=== PATIENT | female | born 1985 | race Caucasian/White ===

== ENCOUNTER 2016-11-02 00:51 | Inpatient (IN) | payer OTHER ==
[~2016-11-02] VITALS: Ht 152.4 cm; Wt 68.0 kg
[~2016-11-02 00:51] MED LIST: NAPROSYN375 MG PO
[2016-11-02 02:01] LABS: ABSOLUTE BASOPHIL COUNT 0.1 /CUMM (0.0-0.2); ABSOLUTE EOSINOPHIL COUNT 0.1 /CUMM (0.0-0.7); ABSOLUTE GRANULOCYTE CT 9.2 /CUMM (1.4-6.5); ABSOLUTE LYMPH COUNT 2.6 /CUMM (1.2-3.4); ABSOLUTE MONOCYTE COUNT 0.7 /CUMM (0.10-0.60); BASOPHIL % 0.4 % (0.0-2.0); EOSINOPHIL % 0.6 % (0-5); HEMATOCRIT 35.6 % (37-47); MEAN CORPUSCULAR HGB 30.6 PG (27.0-31.0); MEAN CORPUSCULAR HGB CONC 33.9 G/DL (33.0-37.0); MEAN CORPUSCULAR VOLUME 90.2 FL (81.0-99.0); MEAN PLATELET VOLUME 9.1 FL (7.4-10.4); PLATELET COUNT 157 /CUMM (130-400); RBC DISTRIBUTION WIDTH 12.4 % (11.5-14.5); RED BLOOD CELL CT 3.95 /CUMM (4.20-5.40); WHITE BLOOD CELL COUNT 12.7 /CUMM (4.8-10.8)
[2016-11-02 04:32] VITALS: BP 128/78
--- NOTE | 2016-11-02 09:32 | Labor & Delivery Summary ---
Delivery Summary Vaginal Delivery: Vaginal: vertex spontaneous vaginal delivery Episiotomy/Lacerations: Episiotomy/Lacerations: 2nd degree laceration Type: second degree midline Repair: 3-0 vicryl Anesthesia: epidural /local Placenta: Placenta: spontanteous, normal, 3 vessel Anesthesia: epidural Cord PH Value: n/a Baby's Weight: Male 8#0 Joseph Luther Apgars - 1 Min: 9 Apgars - 5 Min: 9 Additional Comments: Pt became fully @@ 07:50 and was encouraged to labor down. She began pushing @ 08:80. LV Male over 2nd degree laceration, JOSEPH, wt 8#0oz, APGARS 9/9/9. Placenta spontaneously delivered- NL configuration 3 VC. Laceration repaired in layers no CX or vaginal lacerations A+ Immune Joseph
[2016-11-02] MEDS ORDERED: PRENATAL TABLE1 EAC2 PO (09:43)
--- NOTE | 2016-11-02 10:05 | History & Physical ---
General Information and HPI MD Statement: I have seen and personally examined RACHELL LUTHER and documented this H&P. The patient is a 31 year old female at [40] weeks and [4] days gestation who presented with a chief complaint of [onset of labor]. Source of Information: patient, old records Exam Limitations: no limitations History of Present Illness: 31 yo LMP 01/23/2017 AND JUAN ALBERTO 10/28/2016 PRESENTS @ 40 4/7 DAYS WITH ONSET OF LABOR ISSUES FOR SHARMAINE : 1.) PCN ALLERGY / GR B STR + - CLINDA SENSATIVE 2.) ?? 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 2010 D/C MOLAR 2007 COLPO - HPV Medical History Neurological: NONE EENT: NONE Cardiovascular: NONE Respiratory: SMOKER Gastrointestinal: NONE Hepatic: NONE Renal: NONE Musculoskeletal: PRIOR ANKLE SPRAINS Psychiatric: NONE Endocrine: NONE Blood Disorders: NONE Cancer(s): 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 Home Who Do You Live With? spouse, self Primary Language: Tajik Smoking Status: Former Smoker (ONCE + UCG - QUIT) ETOH Use: occasional use (NOT SINCE + UCG) Illicit Drug Use: denies illicit drug use Review of Systems Review of Systems: NEG CARDIAC PULMONARY GI COMPLAINTS Exam & Diagnostic Data Last 24 Hrs of Vital Signs/I&O Vital Signs Date Time Temp Pulse Resp B/P B/P Pulse O2 O2 Flow FiO2 Mean Ox Delivery Rate 11/02 0432 128/78 Intake & Output 11/02 1600 11/02 0800 11/02 0000 Intake Total Output Total Balance Patient 150 lb Weight Obstetric Exam Wgt Gained During : 29 Pelvimetry: SHOULD BE FINE AVGE SIZED BABY Dilation (cm): 4 Effacement (%): 100 Station: 0 Membranes: intact Fluid: unknown Fundal Height (cm): 38 Multiple Gestation? No Contractions: Q 3 MIN Infant #1 - FHR Baseline: 130 Category: 1 Estimated Weight: 7#10 Presentation: VTX Patient for Induction? No Physical Exam General Appearance Alert, Oriented X3, Cooperative, Mild Distress Skin No Significant Lesion Cardiovascular Regular Rate Lungs Normal Air Movement Abdomen Normal Bowel Sounds, Soft, No Tenderness, No Hepatospenomegaly, FUNDAL HT 39 CM VTX- E F WT 7#12 FHR CAT 1 CONTXNS Q 3 MIN Neurological Normal Gait, Normal Speech Extremities No Tenderness/Swelling Reproductive (FEMALE) Normal female genitalia Labs Blood Type & Rh: A + Antibody Screen: N Hct/Hgb & Platelets #1: 12.8/38.2 219,000 Hct/Hgb & Platelets #2: 11.8/37 165,000 Rubella: IMM VDRL #1: N VDRL #2: N HbsAg: N HIV #1: N HIV #2 N 1 Hr P 3 Hr PG: NL 3 HR GTT Group B Strep: + ( SENS TO CLINDA ) Initial Ultrasound: 03/14/2016 7 1/7 WKS Anatomy Ultrasound: 06/30/2016 22 6/7 WKS NL ANATOMY Ultrasound for EFW: N/A Genetic Testin04/21/2017 NL 1ST TRIM SCREEN NL MSAFP NEG CF Last 24 Hrs of Labs/Tanmay: Laboratory Tests 11/02/16 0115: CBC w Diff NO MAN DIFF REQ, RBC 3.95 L, MCV 90.2, MCH 30.6, RDW 12.4, MPV 9.1, Gran % 73.0, Lymphocytes % 20.2 L, Monocytes % 5.8, Eosinophils % 0.6, Basophils % 0.4, Absolute Granulocytes 9.2 H, Absolute Lymphocytes 2.6, Absolute Monocytes 0.7 H, Absolute Eosinophils 0.1, Absolute Basophils 0.1, PUBS MCHC 33.9, Membrane Rupture NEGATIVE, Urine Color STRAW, Urine Clarity CLEAR, Urine pH 7.0, Ur Specific [place] <= 1.005, Urine Protein NEG, Urine Ketones NEG, Urine Nitrite NEG, Urine Bilirubin NEG, Urine Urobilinogen 0.2, Ur Leukocyte Esterase NEG, Ur Microscopic EXAM NOT REQUIRED, Urine Hemoglobin NEG, Urine Glucose NEG Microbiology 11/02 0700 URINE ROUT: Urine Culture - RECD Assessment/Plan Assessment/Plan: IUP @ TERM- IN LABOR GR B STR + (PCN ALLERGY - GR B STR SENS TO CLINDA) IV CLINDA IN LABOR IN 2010 MOLAR - SEND PLACENTA TO PATH POST DELIVERY As Ranked By This Provider Problem List: 1. 2. Labor and delivery, indication for care Core Measures/Miscellaneous Thomas Catheter Date In: 11/02/16 Venous Thromboembolism VTE Risk Factors: /, Smoking VTE Contraindications: Active Bleeding VTE Diagnosis: No Beta Sagar Is Beta Sagar a Home Med? No If No, Why Not? N/A Antibiotics Is Patient on Antibiotics? Yes If Yes: prophylaxis Attending MD Review Statement Attending Statement Attending MD Statement: examined this patient, discussed with family, reviewed EMR data (avail), discussed w/nursing Attending Assessment/Plan: Donya STEIN MD
[2016-11-03 08:03] LABS: ABSOLUTE BASOPHIL COUNT 0 /CUMM (0.0-0.2); ABSOLUTE EOSINOPHIL COUNT 0 /CUMM (0.0-0.7); ABSOLUTE GRANULOCYTE CT 9.8 /CUMM (1.4-6.5); ABSOLUTE LYMPH COUNT 2.1 /CUMM (1.2-3.4); ABSOLUTE MONOCYTE COUNT 0.8 /CUMM (0.10-0.60); BASOPHIL % 0.2 % (0.0-2.0); EOSINOPHIL % 0.3 % (0-5); HEMATOCRIT 33.2 % (37-47); MEAN CORPUSCULAR HGB 30.7 PG (27.0-31.0); MEAN CORPUSCULAR HGB CONC 33.3 G/DL (33.0-37.0); MEAN CORPUSCULAR VOLUME 92.3 FL (81.0-99.0); MEAN PLATELET VOLUME 9.6 FL (7.4-10.4); PLATELET COUNT 129 /CUMM (130-400); RED BLOOD CELL CT 3.59 /CUMM (4.20-5.40); WHITE BLOOD CELL COUNT 12.8 /CUMM (4.8-10.8)
--- NOTE | 2016-11-03 08:33 | PN- OBGYN ---
Surgical Brief Attending Note Brief Attending Note: NO COMPLAINTS. DOING WELL. AMBULATING, VOIDING, TOLERATING PAIN AND PO. MOD LOCHIA. +NURSING VSSAF FF@U-1 EXT: NO CALF TENDERNESS Laboratory Tests 11/03/16 0540: CBC w Diff NO MAN DIFF REQ, RBC 3.59 L, MCV 92.3, MCH 30.7, RDW 13.0, MPV 9.6, Gran % 77.0 H, Lymphocytes % 16.5 L, Monocytes % 6.0, Eosinophils % 0.3, Basophils % 0.2, Absolute Granulocytes 9.8 H, Absolute Lymphocytes 2.1, Absolute Monocytes 0.8 H, Absolute Eosinophils 0, Absolute Basophils 0, PUBS MCHC 33.3 11/02/16 0115: CBC w Diff NO MAN DIFF REQ, RBC 3.95 L, MCV 90.2, MCH 30.6, RDW 12.4, MPV 9.1, Gran % 73.0, Lymphocytes % 20.2 L, Monocytes % 5.8, Eosinophils % 0.6, Basophils % 0.4, Absolute Granulocytes 9.2 H, Absolute Lymphocytes 2.6, Absolute Monocytes 0.7 H, Absolute Eosinophils 0.1, Absolute Basophils 0.1, PUBS MCHC 33.9, Membrane Rupture NEGATIVE, Urine Color STRAW, Urine Clarity CLEAR, Urine pH 7.0, Ur Specific [place] <= 1.005, Urine Protein NEG, Urine Ketones NEG, Urine Nitrite NEG, Urine Bilirubin NEG, Urine Urobilinogen 0.2, Ur Leukocyte Esterase NEG, Ur Microscopic EXAM NOT REQUIRED, Urine Hemoglobin NEG, Urine Glucose NEG Microbiology 11/02 0700 URINE ROUT: Urine Culture - RECD A/P PPD 1. DOING WELL. ROUTINE PP CARE. DESIRES CIRC. MOM COUNSELED.
[2016-11-04] MEDS ORDERED: IBUPROFEN800 M1 PO (07:27)
--- NOTE | 2016-11-04 07:31 | PN- Post Delivery/GYN ---
Subjective Subjective: feeling well Review of Systems Constitutional: Reports: no symptoms. Denies: chills, fever. EENTM: Denies: blurred vision, double vision, visual changes. Cardiovascular: Denies: chest pain, edema. Respiratory: Denies: cough, short of breath. Gastrointestinal: Denies: abdominal pain, distention, nausea, vomiting. Neurological/Psychological: Denies: anxiety, depressed. Objective Last 24 Hrs of Vital Signs/I&O vss Physical Exam General Appearance Alert, Oriented X3, Cooperative, No Acute Distress Cardiovascular Regular Rate Lungs Clear to Auscultation Abdomen Soft, fundus firm Neurological Normal Tone Extremities No Edema Pelvic (FEMALE) lochia serosanganous Current Medications: Current Medications Sig/Nory Start time Last Medication Dose Route Stop Time Status Admin Acetaminophen 650 MG Q4P PRN 11/02 1015 AC PO Docusate Sodium 100 MG .STK-MED ONE 11/03 2318 DC PO 11/03 2319 Docusate Sodium 100 MG .STK-MED ONE 11/03 0820 DC PO 11/03 0821 Docusate Sodium 100 MG BID PRN 11/02 1015 AC 11/03 PO 0826 Hydroxyzine HCl 100 MG AT BEDTIME NEED.. 11/02 1015 AC PO Ibuprofen 800 MG .STK-MED ONE 11/03 2317 DC PO 11/03 2318 Ibuprofen 800 MG .STK-MED ONE 11/03 1438 DC PO 11/03 1439 Ibuprofen 800 MG .STK-MED ONE 11/03 0810 DC PO 11/03 0811 Ibuprofen 800 MG Q6P PRN 11/02 1015 AC 11/03 PO 1442 Oxycodone/ 1 TAB Q3P PRN 11/02 1015 AC Acetaminophen PO Assessment/Plan Assessment/Plan PPD #2 vss afebrile plan d/c today Problem List: 1. Labor and delivery, indication for care Attending MD Review Statement Attending Statement Attending MD Statement: examined this patient, discussed with family, discussed with nursing
== END 2016-11-04 10:08 | DRG 560 ==
LOC: CBCO 00:51 → GNO 01:27
PROVIDERS: ADMIT Obstetrics & Gynecology
PROC: 10E0XZZ Delivery of Products of Conception, External Approach (ICD-10-PCS; principal; 2016-11-02)
PROC: 0KQM0ZZ Repair Perineum Muscle, Open Approach (ICD-10-PCS; principal; 2016-11-02)
DX: O70.1 Second degree perineal laceration during delivery (principal); O99.824 Streptococcus B carrier state complicating childbirth; Z3A.40 40 weeks gestation of pregnancy; Z37.0 Single live birth; Z87.891 Personal history of nicotine dependence
CPT/HCPCS: GNOS; 36415; 81003; 84112; 87086; 88307; J1200; J1885; J2210; J2405; J7120

== ENCOUNTER 2017-12-29 09:06 | Inpatient (IN) | payer OTHER ==
[~2017-12-29] VITALS: Ht 152.4 cm; Wt 68.5 kg
[~2017-12-29 09:06] MED LIST changes: +IBUPROFEN800 M1 PO; +PRENATAL TABLE1 EAC2 PO
[2017-12-29] MEDS ORDERED: B-121000 MC3 PO (09:34)
[2017-12-29] MEDS ORDERED: HUMULIN N100 UNIT/2 SC (09:34)
[2017-12-29 09:35] VITALS: BP 137/76
[2017-12-29 09:53] LABS: ABSOLUTE BASOPHIL COUNT 0 /CUMM (0.0-0.2); ABSOLUTE EOSINOPHIL COUNT 0.1 /CUMM (0.0-0.7); ABSOLUTE GRANULOCYTE CT 6.4 /CUMM (1.4-6.5); ABSOLUTE MONOCYTE COUNT 0.5 /CUMM (0.10-0.60); BASOPHIL % 0.4 % (0.0-2.0); EOSINOPHIL % 0.6 % (0-5); GRANULOCYTE % 71.6 % (42.2-75.2); MEAN CORPUSCULAR HGB 29.5 PG (27.0-31.0); MEAN CORPUSCULAR HGB CONC 33.8 G/DL (33.0-37.0); MEAN CORPUSCULAR VOLUME 87.1 FL (81.0-99.0); PLATELET COUNT 171 /CUMM (130-400); RBC DISTRIBUTION WIDTH 13.1 % (11.5-14.5); RED BLOOD CELL CT 4.36 /CUMM (4.20-5.40); WHITE BLOOD CELL COUNT 8.9 /CUMM (4.8-10.8)
--- NOTE | 2017-12-29 10:15 | History & Physical ---
General Information and HPI MD Statement: I have seen and personally examined RACHELL LUTHER and documented this H&P. The patient is a 32 year old female at [39] weeks and [2] days gestation who presented with a chief complaint of [IOL]. Source of Information: patient Exam Limitations: no limitations History of Present Illness: 32yo, , 39 2/7wks, here for IOL . she has no complaints, c/o irregular lower abdominal cramping, denies VB or LOF, reports GFM. care started at 8+ wjs, complicated by GDM A2, she uses [facility] 13 U at [facility]. fasting FS as per pt was in 80s, normal postprandial FS. she f/u with discharge rn. 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 Last Menstrual Period: 03/29/2017 Estimated Delivery Date: 01/03/2018 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 D/C MOLAR 2007 COLPO - HPV Past Pregnancies Past Pregnancies: Date of Delivery: 11/02/2016 Gestational Age: 40 5/7wks Weight: 8lbs Type of Delivery: vaginal Anesthesia: epidural Complications: none Medical History Blood Transfusion Hx: No Neurological: NONE EENT: NONE Cardiovascular: NONE Respiratory: SMOKER Gastrointestinal: NONE Hepatic: NONE Renal: NONE Musculoskeletal: PRIOR ANKLE SPRAINS Psychiatric: NONE Endocrine: NONE Blood Disorders: NONE Cancer(s): 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 spouse, self Primary Language: Tajik Smoking Status: Former Smoker ETOH Use: denies use Illicit Drug Use: denies illicit drug use Review of Systems Review of Systems Constitutional: Reports: no symptoms. EENTM: Reports: no symptoms. Cardiovascular: Reports: no symptoms. Respiratory: Reports: no symptoms. GI: Reports: no symptoms. Genitourinary: Reports: see HPI. Musculoskeletal: Reports: no symptoms. Skin: Reports: no symptoms. Neurological/Psychological: Reports: no symptoms. Hematologic/Endocrine: Reports: see HPI. Immunologic/Allergic: Reports: see HPI. Exam & Diagnostic Data Last 24 Hrs of Vital Signs/I&O Vital Signs Date Time Temp Pulse Resp B/P B/P Pulse O2 O2 Flow FiO2 Mean Ox Delivery Rate 12/29 0935 137/76 Intake & Output 12/29 1600 12/29 0800 12/29 0000 Intake Total Output Total Balance Patient 68.492 kg Weight Obstetric Exam Wgt Gained During : 22 lbs Pelvimetry: tested 8lbs Dilation (cm): 3 Effacement (%): 60 Station: -2 Membranes: intact Fluid: unknown Fundal Height (cm): 39 Multiple Gestation? No Contractions: irregular Infant #1 - FHR Baseline: 140 Category: 1 Estimated Weight: 3800g Presentation: vertex Patient for Induction? Yes Tomas Score Tomas Score Response Value Cervix Position: posterior 0 Cervix Consistency: medium 1 Cervix Effacement: 60-70% 2 Cervix Dilation: 3-4 cm 2 Cervix Station: -2 1 Total 6 Physical Exam: VSS General: NAD Abdomen: gravid, soft, nontender. Ext: DCT (-) Labs Blood Type & Rh: A positive Antibody Screen: negative Hct/Hgb & Platelets #1: 11.4/36.3%,[id number] Hct/Hgb & Platelets #2: 11.3/37.9%,[id number] Rubella: immune VDRL #1: negative VDRL #2: negative HbsAg: negative HIV #1: negative HIV #2 negative 1 Hr P 3 Hr P/158/155/152 Group B Strep: positive Initial Ultrasound: IUP at 8 wks Anatomy Ultrasound: nl Genetic Testing: nl Last 24 Hrs of Labs/Tanmay: Laboratory Tests 12/29/17 0932: CBC w Diff NO MAN DIFF REQ, RBC 4.36, MCV 87.1, MCH 29.5, MCHC 33.8, RDW 13.1, MPV 9.0, Gran % 71.6, Lymphocytes % 22.0, Monocytes % 5.4, Eosinophils % 0.6, Basophils % 0.4, Absolute Granulocytes 6.4, Absolute Lymphocytes 2.0, Absolute Monocytes 0.5, Absolute Eosinophils 0.1, Absolute Basophils 0, Urine Color YEL, Urine Clarity CLEAR, Urine pH 6.5, Ur Specific [place] <= 1.005, Urine Protein NEG, Urine Ketones NEG, Urine Nitrite NEG, Urine Bilirubin NEG, Urine Urobilinogen 0.2, Ur Leukocyte Esterase TRACE H, Ur Microscopic SEDIMENT EXAMINED, Urine RBC RARE, Urine WBC RARE, Ur Epithelial Cells MOD H, Urine Bacteria FEW H, Urine Hemoglobin NEG, Urine Glucose NEG Assessment/Plan Assessment/Plan: 32yo, 39 2/7wks GDM A 2 1. admit pt, admission labs 2. antibiotics for GBS prophylaxis 3 .R/B/A of IOL d/w pt, she understand . will start pitocin for IOL, pt agreed with plan 4. will monitor FS q 2 hrs when in labor 5 will monitor closely As Ranked By This Provider Problem List: 1. 2. GDM, class A2 Core Measures Venous Thromboembolism VTE Risk Factors / No Mechanical VTE Prophylaxis d/t LowRisk-No Interven Req'd No VTE Pharm Prophylaxis d/t LowRisk-No Interven Req'd Attending MD Review Statement Attending Statement Attending MD Statement: examined this patient, discussed with family, discussed w/nursing Attending MD Statement: examined this patient, discussed with family, discussed w/nursing
--- NOTE | 2017-12-29 12:48 | PN- OBGYN ---
Surgical Brief Attending Note Brief Attending Note: pt c/o ctxs pain, request epidural on TOCO: ctxs q 3 min, FHR cat I cervix 3cm/60%/-2. will give IV bolus, anesthesia informed. will monitor closely
--- NOTE | 2017-12-29 16:43 | PN- OBGYN ---
Surgical Brief Attending Note Brief Attending Note: pt is comfortable with epidural, no comnplaints on TOCO: ctxs q 2-3 min, FHR baseline 130, moderate variability, + acels, no decels cervix 4-5/80%/02. AROM , clear fluid will continue pitocin induction, monitor closely
--- NOTE | 2017-12-29 21:30 | Labor & Delivery Summary ---
Delivery Summary Vaginal Delivery: Vaginal: vertex Episiotomy/Lacerations: Episiotomy/Lacerations: 1ST DEGREE Type: 1ST DEGREE Repair: 3-0 VICRYL Anesthesia: EPIDURAL Placenta: Placenta: spontanteous, normal, 3 vessel Anesthesia: EPIDURAL Baby's Weight: PENDING Apgars - 1 Min: 9 Apgars - 5 Min: 9 Additional Comments: Patient fully dilated, pushed well, spontaneously deliver a viable female in cephalic presentation, LAURA position, head delivered atraumatically, followed by shoulder and rest of the body without difficulties, baby vigorous and cried, placed on mother's chest, cord clamped and cut. Placenta delivered spontaneously, intact, three-vessel cord. First-degree laceration repaired with 3-0 Vicryl using standard technique. EBL 300 mL. Patient tolerated the procedure well, instruments and needles and laps counts were correct. Patient is in recovery room in stable condition.
[2017-12-30 06:28] LABS: ABSOLUTE BASOPHIL COUNT 0 /CUMM (0.0-0.2); ABSOLUTE EOSINOPHIL COUNT 0.1 /CUMM (0.0-0.7); ABSOLUTE GRANULOCYTE CT 9.2 /CUMM (1.4-6.5); ABSOLUTE MONOCYTE COUNT 0.9 /CUMM (0.10-0.60); BASOPHIL % 0.4 % (0.0-2.0); EOSINOPHIL % 0.4 % (0-5); GRANULOCYTE % 75.3 % (42.2-75.2); HEMATOCRIT 33.1 % (37-47); MEAN CORPUSCULAR HGB 30.3 PG (27.0-31.0); MEAN CORPUSCULAR HGB CONC 34.1 G/DL (33.0-37.0); MEAN CORPUSCULAR VOLUME 88.6 FL (81.0-99.0); PLATELET COUNT 146 /CUMM (130-400); RBC DISTRIBUTION WIDTH 13.4 % (11.5-14.5); RED BLOOD CELL CT 3.73 /CUMM (4.20-5.40); WHITE BLOOD CELL COUNT 12.2 /CUMM (4.8-10.8)
--- NOTE | 2017-12-30 15:21 | PN- OBGYN ---
Surgical Brief Attending Note Brief Attending Note: pt feeling well, +bf, amb / void / attila po, pain well controlled afeb, v/ss nad abd soft nt ff leslye min lochia ext nt tr b/l le ed hct 38-->33 a/p ppd 1 s/p , doing well -routine pp care -ant d/c home iris w/ f/u 6 wks
[2017-12-31] MEDS ORDERED: IBUPROFEN800 M1 PO (07:34)
== END 2017-12-31 10:00 | DRG 560 ==
LOC: GNO 09:06
PROVIDERS: Obstetrics & Gynecology
PROC: 10E0XZZ Delivery of Products of Conception, External Approach (ICD-10-PCS; principal; 2017-12-29)
PROC: 0HQ9XZZ Repair Perineum Skin, External Approach (ICD-10-PCS; principal; 2017-12-29)
PROC: 3E033VJ Introduction of Other Hormone into Peripheral Vein, Percutaneous Approach (ICD-10-PCS; 2017-12-29)
DX: O24.424 Gestational diabetes mellitus in childbirth, insulin controlled (principal); O70.0 First degree perineal laceration during delivery; Z3A.39 39 weeks gestation of pregnancy; Z37.0 Single live birth
CPT/HCPCS: GNOP; GNOS; 36415; 81001; 87086; J1200; J2405; J3370; J7040; J7120